=== PATIENT | male | born 1985 | race Caucasian/White ===

== ENCOUNTER 2017-05-07 16:54 | Inpatient (IN) | payer OTHER ==
[~2017-05-07] VITALS: Ht 180.3 cm; Wt 95.6 kg
--- NOTE | ~2017-05-07 | DS ---
Unit #: [id number] #: [id number] Patient: POLLY CHU [id number] [address] [address] [id number] I MR#: [id number] NAME: POLLY CHU ROOM: 333 Age: 31 Sex: M Admission Date: 05/07/2017 : 1985 Discharge Date: 05/14/2017 Attending Physician: Jeffrey Pinon M.D. Primary Care Physician: No Primary Care Physician DISCHARGE SUMMARY ADDENDUM A 31 year old who was admitted initially with rhabdomyolysis and acute renal failure, acute kidney injury, metabolic acidosis, acute hypoxic respiratory failure. He was supposed to be going home yesterday but was put on hold since Dr. Mcgowan is supposed to be clearing the patient due to his possibility of suicidal attempt. Patient is being discharged home today. He has no suicidal ideation. His medications remain the same: Hydralazine 50 mg three times daily. Patient will be following (1) and Dr. Rivera as an outpatient. Dictated by... Silas Juares/jeannie TD: 05/15/2017 10:38 JOB #: [id number] DISCHARGE SUMMARY Page 1 of 1 X Zenon Worthington MD DISCHARGE SUMMARY
--- NOTE | ~2017-05-07 | CO ---
Unit #: [id number] #: [id number] Patient: GERARDO CHU [id number] [address] [place], [place] [address] [id number] I MR#: [id number] NAME: GERARDO CHU ROOM: 333 Age: 31 Sex: M Admission Date: 05/07/2017 : 1985 Attending Physician: Jeffrey Pinon M.D. Primary Care Physician: No Primary Care Physician Consultation Date: 05/08/2017 CONSULTATION REPORT REASON FOR CONSULT Renal failure. HISTORY Thank you very much for asking us to see this patient in consultation. Mr. Gerardo Chu is a 31-year-old male who presented to the hospital yesterday. Apparently had some confusion and questionable fall with seizure activity, was admitted and noted to have a creatinine of 1 yesterday. It was up to a creatinine of 2.3 today, although unknown if he has had any significant urine output or not. During hospitalization here, he did have a history of some decreased heart rate down into the 30s. According to the records, he uses Spice intermittently, although he denies it when asking if he takes anything at all. He says no medicines, and then I said, "Nothing?" He said, "No," but then when I asked him about a positive opioid on his drug screen, he says he occasionally takes Lortab for a bad back. He currently is alert and oriented. He denies any chest pain, shortness of breath. He was having some nausea, but that has resolved. He denies any abdominal discomfort, any urinary symptoms. No significant swelling. PAST MEDICAL HISTORY History of some depression. Was told that he felt like he wanted to hurt himself, although again, he denies taking anything now. ALLERGIES Questionable codeine. SOCIAL HISTORY Positive smoker. No alcohol. Questionable Spice use versus other drug. MEDICATIONS His medicines at home, again, nothing, although he then states he is taking Lortab. Here he is on Zofran and IV fluids. FAMILY HISTORY Noncontributory. Negative for any kidney disease. PHYSICAL EXAMINATION VITAL SIGNS: His T max is 99.1, pulse 33 to 80, blood pressure 116 to 150/58 to 90. HEENT: Normocephalic, atraumatic. His pupils are equal, round and reactive to light. Extraocular muscles are intact. Hearing appears to be normal. Mouth is clear, no erythema, no exudate. NECK: Supple. No JVD. Unit #: [id number] #: [id number] Patient: GERARDO CHU CARDIAC: He is without a rub. No S3 or S4. LUNGS: His lungs are clear bilaterally. No wheezes, rhonchi or rales. ABDOMEN: Bowel sounds are positive. Nontender, soft. No masses felt. No hepatomegaly or organomegaly noted. EXTREMITIES: He has no lower extremity swelling. His pulses are intact in lower extremities. MUSCULOSKELETAL: No joint pain, joint swelling. SKIN: No rashes. NEUROLOGIC: Appears intact to motor and sensory grossly. : Deferred. DIAGNOSTIC STUDIES LABORATORY DATA: Initially sodium was 135, potassium 3.8, chloride 105, bicarb 18, anion gap 12, BUN 13, creatinine 1, glucose 258, calcium 8.8, albumin 4.8, total protein 8.4. His drug screen in urine was positive for opioids, negative for marijuana, cocaine and other drugs. His initial lactic acid was 6.3, down to 1.6. His BUN and creatinine today are 26 and 2.3 respectively with a bicarb of 19, anion gap of 7. Hemoglobin is 13.7, white count down to 14,300 from 26,400. Platelets are 184,000. His UA shows specific gravity of 1.018, 1+ protein, 1,000 glucose, RBC 0-2, WBC 0-2. INR was 1.2. IMAGING: MRI of the brain was negative. ASSESSMENT AND PLAN 1. Acute kidney injury. This is a gentleman who has increasing BUN and creatinine. We just got back his CPK that was 1,998. He does have mild rhabdomyolysis, but I do not think this is the cause of his kidney failure. I do not see how much output he has had or not. Will check a bladder scan, postvoid residual, check renal ultrasound to rule out obstruction. Will repeat a UA, culture and sensitivity, check a random urine protein/creatinine, check urine eosinophils, check a random urine sodium. Agree with IV fluids for now. His urine, again, had no RBCs or WBCs, but again positive protein. Will check labs in the morning. Depending on how he does, depending on what further workup and treatment. Will check blood cultures, as well, with elevated white count. Will recheck CPK and a CMP again in the morning. Will continue to follow. 2. Mild rhabdomyolysis. Possibly related to seizures, although with his level, I do not think that is the cause of his renal failure. Will keep him on his regular IV fluids. Will check CPK in the a.m. 3. Possible seizure. 4. Bradycardia. Cardiology has been consulted. 5. Questionable drug abuse. Again, was opioid positive. The rest is negative, and he denies taking anything at this time. 6. Acidosis. He had a non-elevated anion gap metabolic acidosis. Will check a serum osmolality, as well, recheck bicarb in the morning. Thank you very much. Dictated by.Yady Rivera M.D. LOIDA/quinn Unit #: [id number] #: [id number] Patient: GERARDO CHU TD: 05/09/2017 09:08 JOB #: [id number] CONSULTATION REPORT Page 1 of 1 X Amandeep Rivera MD X CONSULTATION REPORT
--- NOTE | ~2017-05-07 | CO ---
Unit #: [id number] #: [id number] Patient: GERARDO CHU [id number] [facility] [address] [facility]. [place], [place] [address] [id number] I MR#: [id number] NAME: GERARDO CHU ROOM: 333 Age: 31 Sex: M Admission Date: 05/07/2017 : 1985 Attending Physician: Jeffrey Pinon M.D. Primary Care Physician: Primary Care Physician No Consultation Date: 05/08/2017 CONSULTATION REPORT REASON FOR CONSULTATION Overdose. HISTORY OF PRESENT ILLNESS Gerardo Chu is a 31-year-old white male, seen in room 333 bed 1 on 05/08/2017 at [facility]. The patient's mom was at the bedside. The patient is not aware of the reason why he was admitted in the hospital. The patient apparently took overdose. Urine drug screen was positive for opioid. The patient denied any suicidal or homicidal ideation, but mom is concerned the patient was talking about suicide earlier this week. The patient's vital signs; temperature 99.2, pulse 65, respirations 16, blood pressure 126/67, and oxygen saturation 100%. The patient was admitted with possible seizure, rule out aspiration. The patient denied any use of drugs. PAST PSYCHIATRIC HISTORY Unremarkable for any history of any previous treatment for depression, anxiety, or substance abuse. MEDICAL HISTORY AND MEDICATION HISTORY Home medication, none. Remarkable for possible seizure, acute hypoxic respiratory failure. Urine drug screen positive for opioids, increased lactic acid level. ALLERGIES Allergies to Codeine. FAMILY HISTORY AND SOCIAL HISTORY The patient has a good support system from family. No history of abuse. History of substance abuse possible. Urine drug screen positive for opioids. REVIEW OF SYSTEMS Complete review of systems is unremarkable except as mentioned above. MENTAL STATUS EXAMINATION General appearance; the patient dressed casually, lying comfortably in bed. The patient has a sitter and the patient's mom was also there. Attention span and concentration, fair. Speech, regular rate. Oriented in time, place, and person. Mood and affect, sad, dysphoric, flat. Thought process, coherent. Thought content, the patient denied any thoughts of harming self or others or any hallucination, but at the time of admission confused and possible overdose. Recent and remote memory, poor. Language, intact. Fund of knowledge, fair. Insight and judgment, Unit #: [id number] #: [id number] Patient: GERARDO CHU fair to slightly impaired. DIAGNOSES Psychiatric: 1. Opioid use disorder, severe, F11.20. 2. Rule out major depressive disorder, recurrent, severe, F33.2. Secondary diagnosis: Deferred. Medical diagnosis: Please refer to H and P. Stressors: Psychosocial stressors. ASSESSMENT/PLAN 1. Supportive psychotherapy and psychoeducation provided to the patient. 2. Educated about benefits and side effects of medication and course and prognosis of illness. 3. Advised to continue with sitter and one-to-one monitoring for safety and consider transferring the patient to [facility] once the patient is medically stable. Please feel free to call if any questions telephone #[phone]. Dictated by... Lawson Mcgowan M.D. WILEY/laon TD: 05/09/2017 06:56 JOB #: [id number] CONSULTATION REPORT Page 1 of 1 X Lawson Mcgowan MD X CONSULTATION REPORT
--- NOTE | ~2017-05-07 | HP ---
Unit #: [id number] #: [id number] Patient: POLLY CHU [id number] [address] [place], [place] [address] [id number] MR#: [id number] NAME: POLLY CHU ROOM: 62160 Age: 31 Sex: M Admission Date: 05/07/2017 : 1985 Attending Physician: Ramandeep Mayer M.D. HISTORY AND PHYSICAL CHIEF COMPLAINT Possible seizure, rule out aspiration. HISTORY OF PRESENT ILLNESS This healthy 31-year-old male was brought to the emergency department for altered mental status. Family reports that another family member saw the patient "convulsing, then fell out." EMS was called, and the patient was laid back in a recliner foaming at his mouth. When EMS arrived, he was very altered but slowly improved on his own. He does have bruises over the head, complaining of a headache, and complaining of low back pain. He did not bite his tongue or lose continence of his urine. His initial ABG showed a metabolic acidosis with acute hypoxic respiratory failure. Despite a negative chest x-ray, he sounds quite rhonchus on exam. No previous history of seizures. Although patient denies a history of drug use, family members did say that patient does use spice on a frequent basis. His urine toxicology screen is positive for opiates. There was reportedly (1) with powder inside at the scene as well. Family also states the patient has been increasingly depressed saying he does not want to live anymore. His mother about two months ago. In the emergency department, he was bolused with IV fluids and given Zosyn and Zofran. PAST MEDICAL HISTORY Unremarkable. ALLERGIES Codeine. HOME MEDICATIONS None. FAMILY HISTORY Diabetes, colon cancer, seizures. SOCIAL HISTORY The patient lives with his stepfather and stepfather's girlfriend. Patient smokes between one-half to one pack per day of tobacco, does not drink alcohol, and denies illicit drug use. REVIEW OF SYSTEMS Notable for being confused today. Patient states that he remembers waking up in the back of the ambulance. He complains currently of chest pain, headache, and back pain. Tobacco use. All other systems were reviewed Unit #: [id number] #: [id number] Patient: POLLY CHU and are otherwise negative. PHYSICAL EXAMINATION GENERAL: A pleasant 31-year-old male who currently is in no acute distress. VITAL SIGNS: Temperature has not yet been obtained, pulse 80, respirations 20, blood pressure 142/90, and O2 saturation 96% on 2 liters of oxygen. HEENT: Eyes PERRLA. Extraocular muscles are intact, but patient does have horizontal nystagmus. Pharynx is benign with a pierced tongue. No laceration over the tongue. There is bruising over the forehead. NECK: Supple without adenopathy or thyromegaly. CHEST: Rhonchus bilaterally. CARDIAC: Normal S1 and S2 without murmur. ABDOMEN: Bowel sounds are present. No hepatosplenomegaly, tenderness, or masses. EXTREMITIES: Without edema. Pedal pulses are present. NEUROLOGIC: Patient is awake, alert, and oriented. His cranial nerves are intact. He has equal strength throughout. DIAGNOSTIC STUDIES ADMISSION LABORATORY: Hematocrit is 45.5 and white blood count is 26.4 with normal platelet count. Normal coags. SMA-12 with glucose of 258, CO2 of 18, and protein is 8.4. Lactic acid is 6.3. Acetaminophen, salicylate, and alcohol levels are negligible. ABG show a pH of 7.22, PCO2 of 33, PO2 of 61, and O2 saturation 82.8% on 2 liters of oxygen. Urine toxicology screen positive for opiates. Urinalysis with positive glucose, protein, and blood without significant white or red cells. IMAGING: Head CT shows chronic sinus disease. Chest x-ray shows no acute disease. CARDIOLOGY: EKG shows a normal sinus rhythm, rate 78, normal appearing. ASSESSMENT 1. Possible seizure. 2. Acute hypoxic respiratory failure, rule out aspiration pneumonia. 3. Increasing depression. Apparently, the patient told family members that he wants to . His mother two months ago. 4. Positive urine toxicology screen for opiates. 5. Elevated lactic acid level likely related to seizure. I doubt that patient is septic. 6. Probably reactive hyperglycemia and probably reactive leukocytosis. PLANS 1. One dose of Keppra and obtain EEG and MRI of the brain. 2. Aggressive IV fluids, recheck labs in a few hours, and will check a CPK. 3. Empiric Zosyn and albuterol. Will repeat chest x-ray in the morning. 4. Will put on sepsis protocol for now, although I do not believe the patient is septic. 5. A 72-hour hold with [facility] to see in the morning as well. 1. Dictated by Ramandeep Mayer M.D. AML/am Unit #: [id number] #: [id number] Patient: POLLY CHU TD: 05/07/2017 22:17 JOB #: [id number] HISTORY AND PHYSICAL Page 1 of 1 X Ramandeep Mayer MD X HISTORY AND PHYSICAL
--- NOTE | ~2017-05-07 | US77 ---
[facility] A Service of [facility] RADIOLOGY TEXT RESULTS PATIENT: POLLY CHU LOCATION: [facility] 333 : 85 UNIT #: [id number] AGE: [address]: Jeffrey Pinon MD SEX: M ORDER DR: [id number] [facility]. [place], [place] [address] [id number] I MR#: [id number] Acc #: [id number] NAME: POLLY CHU : 1985 SEX: M STUDY DATE/TIME: 05/08/2017 17:07 UNIT: C3A PCU ROOM: 333 STUDY DESCRIPTION: US Kidney Bilateral Complete Attending Physician: Jeffrey Pinon M.D. Ordering Physician: Beau Rivera M.D. Primary Care Physician: No Primary Care Physician MEDICAL IMAGING REPORT This report is preliminary unless electronic signature is present EXAM Renal ultrasound bilateral, 05/08/2017. INDICATION Acute renal failure for 1 day. BUN 23, creatinine 3.7, GFR 20.5. TECHNIQUE Sonographic imaging of the kidneys was performed bilaterally. COMPARISON We have no comparisons. FINDINGS The right kidney measures 14.3 cm long axis and the left 12.4 cm. Trace amount of free fluid adjacent to the right kidney. No shadowing stone or distinct evidence of hydronephrosis on either side. Bladder unremarkable. IMPRESSION 1. No hydronephrosis or shadowing stone on either side. 2. Nonspecific trace amount of free fluid adjacent to the right kidney. Dictated by... Ashok Marie M.D. THIS IS AN ELECTRONICALLY VERIFIED REPORT Ashok Marie M.D. at 05/09/2017 2:19 PM RAMIRO/billy TD: 05/09/2017 09:14 JOB #: [id number] [facility] A Service of [facility] RADIOLOGY TEXT RESULTS PATIENT: POLLY CHU LOCATION: [facility] 333 : 85 UNIT #: [id number] AGE: [address]: Jeffrey Pinon MD SEX: M ORDER DR: MEDICAL IMAGING REPORT Page 1 of 1 COPY
--- NOTE | ~2017-05-07 | CR72 ---
[facility] A Service of [facility] & [facility] RADIOLOGY TEXT RESULTS PATIENT: POLLY CHU LOCATION: [facility] 44579-48 : 85 UNIT #: [id number] AGE: [address]: Ramandeep Mayer MD SEX: M ORDER DR: [id number] [facility] [address]. [place], [place] [address] [id number] MR#: [id number] Acc #: [id number] NAME: POLLY CHU : 1985 SEX: M STUDY DATE/TIME: 05/07/2017 18:04 UNIT: [facility] ROOM: STUDY DESCRIPTION: CR Chest Single View Portable Attending Physician: Sunil Rosas D.O. Ordering Physician: Sunil Rosas D.O. Primary Care Physician: Primary Care Physician No MEDICAL IMAGING REPORT This report is preliminary unless electronic signature is present EXAM Portable chest HISTORY Confusion, cough, congestion, possible overdose and drug abuse. FINDINGS A single AP portable view of the chest shows both lungs to be clear. The heart is normal in size. The mediastinal contour is normal. No significant bone abnormalities are seen. IMPRESSION Normal portable chest. Dictated by... Lyndsay Dickey M.D. THIS IS AN ELECTRONICALLY VERIFIED REPORT Lyndsay Dickey M.D. at 05/07/2017 10:04 PM WILFRIDO/faviola TD: 05/07/2017 19:56 JOB #: [id number] MEDICAL IMAGING REPORT Page 1 of 1 COPY
--- NOTE | ~2017-05-07 | CT71 ---
[facility] A Service of [facility] & [facility] RADIOLOGY TEXT RESULTS PATIENT: POLLY CHU LOCATION: A 333-01 : [birth year] UNIT #: [id number] AGE: [address]: Jeffrey Pinon MD SEX: M ORDER DR: [id number] [facility] [address] [place], [place] [address] [id number] I MR#: [id number] Acc #: [id number] NAME: POLLY CHU : 1985 SEX: M STUDY DATE/TIME: 05/07/2017 20:01 UNIT: [facility] ROOM: 22908 STUDY DESCRIPTION: CT Head Wo Contrast Attending Physician: Ramandeep Mayer M.D. Ordering Physician: Sunil Rosas D.O. Primary Care Physician: Primary Care Physician No MEDICAL IMAGING REPORT This report is preliminary unless electronic signature is present EXAM Noncontrast head CT. HISTORY Syncopal episode today, possible overdose, injury to forehead. FINDINGS Axial noncontrast imaging of the brain. This CT exam was performed with one or more of the following radiation dose reduction techniques: Automatic exposure control, adjustment of mA and/or kV according to patient size, and iterative reconstruction. Brain parenchyma normal. No mass or hemorrhage. Frontal, ethmoid and sphenoid sinus mucosal disease. Calvarium and skull base unremarkable. IMPRESSION 1. No acute intracranial abnormality identified. 2. Probable chronic frontal, ethmoid and sphenoid sinus mucosal disease. Dictated by... Lyndsay Dickey M.D. THIS IS AN ELECTRONICALLY VERIFIED REPORT Lyndsay Dickey M.D. at 05/09/2017 5:39 PM WILFRIDO/faviola TD: 05/07/2017 22:05 JOB #: [id number] MEDICAL IMAGING REPORT Page 1 of 1 COPY
--- NOTE | ~2017-05-07 | CR181 ---
[facility] A Service of [facility] RADIOLOGY TEXT RESULTS PATIENT: POLLY CHU LOCATION: A 333-01 : 85 UNIT #: [id number] AGE: [address]: Jeffrey Pinon MD SEX: M ORDER DR: [id number] [facility] [address] [facility] [place], [place] [address] [id number] I MR#: [id number] Acc #: [id number] NAME: POLLY CHU : 1985 SEX: M STUDY DATE/TIME: 05/08/2017 7:38 [facility]: 18643 STUDY DESCRIPTION: CR Lumbar Spine 2 or 3 Views Attending Physician: Jeffrey Pinon M.D. Ordering Physician: Ramandeep Mayer M.D. Primary Care Physician: Primary Care Physician No MEDICAL IMAGING REPORT This report is preliminary unless electronic signature is present EXAM Lumbar spine 3 views 05/08/2017 HISTORY Left side low back pain status post fall after a seizure today. FINDINGS AP and lateral projections of the lumbar segment show good mineralization of both anterior and posterior elements. They are all anatomically normal without indication of fracture, dislocation, or malignant change of a sclerotic or lytic type. There is no congenital defect noted. The sacroiliac joints are normal. IMPRESSION Normal lumbar spine. Dictated by... Enoc Quijano M.D. THIS IS AN ELECTRONICALLY VERIFIED REPORT Enoc Quijano M.D. at 05/09/2017 7:13 AM ERNESTO/abelardo TD: 05/08/2017 09:19 JOB #: [id number] MEDICAL IMAGING REPORT Page 1 of 1 COPY
--- NOTE | ~2017-05-07 | DS ---
Unit #: [id number] #: [id number] Patient: POLLY CHU [id number] [address] [facility]. [place], [place] [address] [id number] I MR#: [id number] NAME: POLLY CHU ROOM: 333 Age: 31 Sex: M Admission Date: 05/07/2017 : 1985 Discharge Date: 05/14/2017 Attending Physician: Jeffrey Pinon M.D. Primary Care Physician: No Primary Care Physician DISCHARGE SUMMARY PRINCIPAL DISCHARGE DIAGNOSES 1. Rhabdomyolysis. 2. Acute kidney injury. 3. Bradycardia. 4. Questionable seizures. 5. History of drug abuse. 6. Metabolic acidosis. HOSPITAL COURSE This is a 31-year-old male who was brought into the emergency room by the family member, noticed to be having seizures or convulsions. In the ER, patient was found to have acute respiratory hypoxic respiratory failure and metabolic acidosis, acute renal failure with very high CPK level suggestive of rhabdomyolysis. He was seen by nephrology, treated with IV fluids. On admission, his creatinine was 5.1 with very high CPK levels which are significantly improved. CPK on admission was 37,000, now is down to 7955. Patient is medically stable. Discussed with Dr. Rivera who is the selling manager on the case. He is stable to be discharged home from his point. His bradycardia has resolved. His blood pressure is under control. DISCHARGE MEDICATIONS Hydralazine 50 mg three times a day. CONDITION AT DISCHARGE Stable. Note: According to the admission note, the patient was seen by Dr. Mcgowan. [facility] We will discuss with Dr. Mcgowan once again if patient is stable, whether he can be discharged home or [facility]. DIAGNOSTIC STUDIES LABORATORY: Labs on May 13: His creatinine is 2.2, potassium is 3.3, sodium is 136, CO2 is 34. At the time of the discharge summary, patient declines any suicidal ideation or suicidal thought. Dictated by... Silas Juares/jeannie Unit #: [id number] #: [id number] Patient: POLLY CHU TD: 05/15/2017 09:47 JOB #: [id number] DISCHARGE SUMMARY Page 1 of 1 X Zenon Worthington MD DISCHARGE SUMMARY
--- NOTE | ~2017-05-07 | CT4 ---
[facility] A Service of [facility] & [facility] RADIOLOGY TEXT RESULTS PATIENT: POLLY CHU LOCATION: C3A 333-01 : 85 UNIT #: [id number] AGE: [address]: Jeffrey Pinon MD SEX: M ORDER DR: [id number] [facility] [address] [place], [place] [address] [id number] I MR#: [id number] Acc #: [id number] NAME: POLLY CHU : 1985 SEX: M STUDY DATE/TIME: 05/09/2017 12:08 UNIT: C3A PCU ROOM: 333 STUDY DESCRIPTION: CT Abd and Pelv Wo Cont Attending Physician: Jeffrey Pinon M.D. Ordering Physician: Pola Link M.D. Primary Care Physician: No Primary Care Physician MEDICAL IMAGING REPORT This report is preliminary unless electronic signature is present EXAM CT abdomen and pelvis, 05/09/2017. HISTORY Seizure on 05/07/2017, questionable drug use. Increasing renal failure, GFR was 99 on 05/07/17 and 14.3 today. Evaluate kidneys. TECHNIQUE This CT exam was performed with one or more of the following radiation dose reduction techniques: automatic exposure control, adjustment of mA and/or kV according to patient size, and iterative reconstruction. FINDINGS CT abdomen and pelvis performed without administration of oral or intravascular contrast. No prior CTs of the abdomen or pelvis for comparison. There is some minimal patchy densities at the left lung base which are nonspecific and could represent minimal peribronchitis or pneumonitis. There is no dense airspace disease. The inferior heart and pericardium are unremarkable. There is a trace amount of ascites adjacent to the liver. There is some periportal edema present. The gallbladder is not pathologically dilated but it contains diffuse high-density material. The gallbladder wall is questionably prominent relative to its volume. Questionable small amount of pericholecystic fluid. This could be a reflection of the ascites. The high-density fluid within the gallbladder is of unclear etiology. It could represent dense gallbladder sludge. It does not have the appearance of gallstones. In the context of recent intravascular contrast administration, it could reflect hepatobiliary excretion of contrast. No clearly suspicious focal hepatic parenchymal abnormality is seen. The spleen is borderline enlarged at about 13.8 cm in maximum diameter. The pancreas, adrenal glands are unremarkable. The bilateral kidneys show no hydronephrosis or nephrolithiasis. A 2.7 cm cyst anteromedial lower pole left kidney. There is some haziness and STS. [facility] A Service of [facility] RADIOLOGY TEXT RESULTS PATIENT: POLLY CHU LOCATION: C3A 333-01 : 85 UNIT #: [id number] AGE: [address]: Jeffrey Pinon MD SEX: M ORDER DR: stranding in the right inferior perinephric fat. There is a subtle area of hypodensity in the lower pole of the right kidney, better visualized on the sagittal and coronal reconstructions. Vaguely wedge-shaped in configuration and measuring approximately 2.1 cm x 3.7 cm. The appearance in conjunction with the adjacent inflammatory change raises possibility of localized pyelonephritis. Correlate with urinalysis. Given its vaguely wedge-like shape, consider possible infarct. This is felt less likely in the absence of risk factors. It is possible that some of the apparent inflammatory change in this region reflects ascites extending along the pericolic gutter, but the inflammatory change does appear to some extent localized within the perinephric fat at the right lower renal pole. CT Pelvis: No inguinal adenopathy. Small amount of free fluid in the pelvis. Not a drainable fluid collection. Urinary bladder unremarkable. There is no pelvic or retroperitoneal adenopathy. The distal esophagus, stomach, small bowel unremarkable. Patient retains normal appendix. Colon shows evidence of uncomplicated sigmoid diverticulosis. Colon otherwise unremarkable. Unopacified vascular structures show no acute abnormality. Bony structures show degenerative change in spine. No acute-appearing bony abnormality. Review of the lung bases shows a tiny right pleural effusion. Not a drainable fluid collection. IMPRESSION 1. Abnormal examination. Please see complete dictation above for full details. In the lower pole of the right kidney there is a vaguely wedge-shaped area of subtle hypodensity measuring up to 3.7 cm in diameter. Adjacent to this, there is some mild inflammatory change in the lower pole perinephric fat. Constellation of findings could reflect focal area of pyelonephritis. Correlate with laboratory data and clinical presentation. Unifocal parenchymal infarct felt unlikely. No renal hydronephrosis or nephrolithiasis. No acute abnormality in the left kidney. Left lower pole renal cyst. 2. There is a small amount of ascites adjacent to the liver and in the deep pelvis. These are not drainable fluid collections. 3. Periportal edema. Cause unclear. Correlate with any clinical indications of hepatitis. The liver shows no focal parenchymal abnormality. 4. Abnormal appearance of gallbladder. It is not abnormally dilated but the wall appears slightly prominent relative to volume and the gallbladder is filled with homogeneous hyperdense material. This could represent dense sludge, milk of calcium, or hepatobiliary excretion of contrast material if the patient has recently received intravascular contrast. Please correlate clinically. If further gallbladder imaging would assist in management, ultrasound or hepatic biliary scan could be considered. There may be a trace amount of pericholecystic fluid. It is possible that this is simply ascitic fluid and not an indicator of gallbladder inflammation. 4. Borderline splenomegaly. Spleen measures up to 13.8 cm in maximum diameter. [facility]. [facility] A Service of [facility] RADIOLOGY TEXT RESULTS PATIENT: POLLY CHU LOCATION: [facility] 333-01 : 85 UNIT #: [id number] AGE: [address]: Jeffrey Pinon MD SEX: M ORDER DR: 5. Uncomplicated sigmoid diverticulosis. 6. Trace right pleural effusion. Not a drainable fluid collection. 7. Minimal patchy densities posteromedial left lung base. Not typical appearance for atelectasis. Area of mild pneumonitis/bronchiolitis favored. No dense airspace disease. See remainder findings in body of report above. Dictated by... Phu Monk M.D. THIS IS AN ELECTRONICALLY VERIFIED REPORT Phu Monk M.D. at 05/12/2017 7:36 AM LENNIE/elaine TD: 05/09/2017 21:10 JOB #: [id number] MEDICAL IMAGING REPORT Page 1 of 1 COPY
--- NOTE | ~2017-05-07 | CO ---
Unit #: [id number] #: [id number] Patient: POLLY CHU [id number] [address] [address] [id number] I MR#: [id number] NAME: POLLY CHU ROOM: 333 Age: 31 Sex: M Admission Date: 05/07/2017 : 1985 Attending Physician: Jeffrey Pinon M.D. Primary Care Physician: No Primary Care Physician Consultation Date: 05/10/2017 CONSULTATION REPORT REASON FOR CONSULTATION Acute renal failure with abnormality on imaging of right kidney. CHIEF COMPLAINT Drug overdose and acute renal failure. HISTORY OF PRESENT ILLNESS The patient is a 31-year-old male who presented on 05/07/2017 after an apparent drug overdose with Spice. He had some confusion and a fall with possible seizure activity, and he was brought to the emergency room. He denies flank pain, fevers or chills. His creatinine has risen from a baseline of 1 on May 07 to 2.3 on May 08, 5.0 on May 09 and 5.1 on May 10. He underwent a renal ultrasound, which showed no hydronephrosis but a small amount of right perinephric fluid, and then a noncontrasted CT scan of the abdomen and pelvis, which shows a hypodensity in the right lower pole of his kidney. He, again, denies fevers and flank pain. It should be noted that he has an elevated CK of 38,440, which is rising, most likely consistent with rhabdomyolysis. The patient denies gross hematuria or dysuria. PAST MEDICAL HISTORY Depression. SOCIAL HISTORY Positive for tobacco. Negative for alcohol. Positive for Spice use. ALLERGIES Possibly codeine. HOME MEDICATIONS None. FAMILY HISTORY Noncontributory. REVIEW OF SYSTEMS Positive for mental status changes and seizure activity. Negative for fevers, chills, flank pain, gross hematuria. PHYSICAL EXAMINATION GENERAL: Physical examination reveals a well-developed white male in no acute distress. VITALS: Temperature 97.9, blood pressure 147/81, pulse 109. Unit #: [id number] #: [id number] Patient: POLLY CHU HEENT: Normocephalic, atraumatic. Extraocular movements are intact. NECK: Neck is supple. No lymphadenopathy. LUNGS: Respirations are unlabored with symmetric chest rise. ABDOMEN: Soft, nontender, nondistended. There is no CVA tenderness. EXTREMITIES: There is no clubbing, cyanosis or edema. He is moving all extremities well. NEUROLOGIC: He is alert and oriented x4. DIAGNOSTIC STUDIES LABS: White blood cell count 15,000. It is falling. Creatinine is 5.1, potassium 3.6. CK is 38,440. Urinalysis - Nitrite negative, leukocyte esterase trace positive, 10-15 white blood cells. Urine culture is no growth to date. IMAGING: CT scan and renal ultrasound were personally reviewed. ASSESSMENT AND PLAN Rhabdomyolysis, acute renal failure and right lower density lesion on CT scan. While this could radiographically represent pyelonephritis, he has a negative urine culture, and this is certainly not acting like pyelonephritis or an abscess given his lack of fevers and lack of flank pain. We will monitor him, and if symptoms of this develop, then we may consider antibiotics and reimaging. This lesion does need to be reimaged. If his creatinine normalizes and his kidney function recovers, then we will get a CT of the abdomen and pelvis without and with IV contrast. If it does not normalize, then we would repeat an noncontrast CT scan in 2-3 months. Appreciate the opportunity to participate in his care. Dictated by... Gomez Green M.D. JEANNE/quinn TD: 05/10/2017 11:54 JOB #: [id number] CONSULTATION REPORT Page 1 of 1 X Gomez Green MD CONSULTATION REPORT
--- NOTE | ~2017-05-07 | CR63 ---
[facility] A Service of [facility] & [facility] RADIOLOGY TEXT RESULTS PATIENT: POLLY CHU LOCATION: A 333-01 : 85 UNIT #: [id number] AGE: [address]: Jeffrey Pinon MD SEX: M ORDER DR: [id number] [facility] [address] [place], [place] [address] [id number] I MR#: [id number] Acc #: [id number] NAME: POLLY CHU : 1985 SEX: M STUDY DATE/TIME: 05/08/2017 7:27 [facility]897 STUDY DESCRIPTION: CR Chest 2 View Attending Physician: Jeffrey Pinon M.D. Ordering Physician: Ramandeep Mayer M.D. Primary Care Physician: Primary Care Physician No MEDICAL IMAGING REPORT This report is preliminary unless electronic signature is present EXAM Chest PA and lateral 05/08/2017 HISTORY Left-side chest pain and low back pain beginning today after a seizure. Smoking history. FINDINGS PA and lateral examination of the chest upright shows a good expansion of the parenchyma with a normal distribution of the pulmonary vascularity. There is no indication of congestion, effusion, infiltrate, tumor, or nodular density. The pleural reflections and diaphragmatic contours are normal. The cardiac silhouette and mediastinal anatomy is within normal limits. IMPRESSION Normal chest. Dictated by... Enoc Quijano M.D. THIS IS AN ELECTRONICALLY VERIFIED REPORT Enoc Quijano M.D. at 05/09/2017 7:13 AM ERNESTO/abelardo TD: 05/08/2017 09:04 JOB #: [id number] MEDICAL IMAGING REPORT Page 1 of 1 COPY
--- NOTE | ~2017-05-07 | TOC ---
Unit #: [id number] #: [id number] Patient: POLLY CHU [id number] [address] [facility] [place], [place] [address] [id number] I MR#: [id number] NAME: POLLY CHU ROOM: 333 Age: 31 Sex: M Admission Date: 05/07/2017 : 1985 Attending Physician: Jeffrey Pinon M.D. Primary Care Physician: No Primary Care Physician TRANSFER OF CARE SUMMARY DISCHARGE DIAGNOSES 1. Seizure. 2. Acute hypoxic respiratory failure. 3. Depression with suicidal ideation/attempt. 4. Drug abuse. 5. Metabolic acidosis. 6. Rhabdomyolysis. 7. Acute kidney injury. HOSPITAL COURSE Patient is a 31-year-old male who was brought to [facility] emergency department after a family member noticed him to be "convulsing." EMS was called and found a similar picture and brought the patient to the emergency department. Initial ABG in the emergency department showed a metabolic acidosis and acute hypoxic respiratory failure. Apparently there is a report that apparently the patient had been increasingly depressed and had possibly attempted to take his own life secondary to the passing of his mother. Report was also given that the patient smokes spice intermittently. The patient recovered well and did not have any further seizure activity. Upon discussion of possible suicide attempt or drug ingestion, the patient denies both. He has been seen by Dr. Mcgowan with psychiatry who has recommended consideration for transferring the patient to [facility][1] once he is medically stable. The patient's creatinine was 1.0 upon presentation to the emergency department on 05/07. However it had risen to 2.3 by 6:00 a.m. and recheck approximately 20 hours after admission showed a rise to 3.7. Shortly thereafter the patient's CK was noted to be on the rise and after having been 1998 upon initial check eventually kristina to 38,440. At this time it is trending down as is the patient's creatinine which is currently 3.0. The patient feels well and does continue to deny suicidal ideation. The current plan is to continue IV fluids as creatinine continues to improve and consider a transfer to [facility][1] based on psychiatric recommendations upon resolution of acute kidney injury. Dictated by... Jeffrey Pinon M.D. CAM/cf Unit #: [id number] #: [id number] Patient: POLLY CHU TD: 05/12/2017 16:17 JOB #: [id number] TRANSFER OF CARE SUMMARY Page 1 of 1 X Jeffrey Pinon MD TRANSFER OF CARE SUMMARY
--- NOTE | ~2017-05-07 | EKG ---
PATIENT: POLLY CHU UNIT #: [id number] Ventricular Rate: 44 BPM Atrial Rate: 44 BPM P-R Interval: 124 ms QRS Duration: 94 ms Q-T Interval: 482 ms QTC Calculation(Bezet): 412 ms P Loring: 61 degrees Calculated R Loring: 4 degrees Diagnosis Line: Marked sinus bradycardia Diagnosis Line: Borderline ECG Diagnosis Line: When compared with ECG of 07-MAY-2017 17:35, Diagnosis Line: (unconfirmed) Diagnosis Line: Vent. rate has decreased BY 34 BPM Diagnosis Line: QT has shortened Diagnosis Line: Confirmed by JUAN JOSE CARPENTER MD ([id number]) on 05/09/2017 Diagnosis Line: 11:44:32 PM INTERPRETING MD: PAULINE DARDEN
--- NOTE | ~2017-05-07 | MR17 ---
[facility] A Service [facility] RADIOLOGY TEXT RESULTS PATIENT: POLLY CHU LOCATION: C3A PC 333-01 : 85 UNIT #: [id number] AGE: [address]: Jeffrey Pinon MD SEX: M ORDER DR: [id number] [facility] [address] [place], [place] [address] [id number] I MR#: [id number] Acc #: [id number] NAME: POLLY CHU : 1985 SEX: M STUDY DATE/TIME: 05/08/2017 8:44 UNIT: CEDOF ROOM: 00799 STUDY DESCRIPTION: MR Brain WWo Contrast Attending Physician: Jeffrey Pinon M.D. Ordering Physician: Sunil Rosas D.O. Primary Care Physician: Primary Care Physician No MRI CENTER REPORT This report is preliminary unless electronic signature is present. EXAM MRI brain INDICATION Focal neurological deficit. Seizure. Acute hypoxic respiratory failure. Hyperglycemia. Possible drug overdose. TECHNIQUE Multiplanar MRI of the brain with and without contrast (17 mL MultiHance IV contrast). COMPARISON CT head dated 05/07/2017. FINDINGS Several image sequences are degraded due to motion artifact. The midline structures and craniocervical junction are within normal limits. There is no acute intracranial ischemia. No intracranial hemorrhage. Neville-white matter differentiation is normal. The ventricles and basilar cisterns are normal in size and configuration. There is no abnormal enhancing mass or lesion following administration of contrast. There is no extraaxial collection or abnormal extraaxial enhancement. There is a small left mastoid effusion. Minimal mucosal thickening is noted in the left maxillary sinus and left sphenoid sinus. Orbits are unremarkable. The dedicated high resolution T2 images through the medial temporal lobes are significantly motion degraded, however there is no asymmetric atrophy in this region. IMPRESSION [facility] A Service [facility] RADIOLOGY TEXT RESULTS PATIENT: POLLY CHU LOCATION: C3A PC 333-01 : 85 UNIT #: [id number] AGE: [address]: Jeffrey Pinon MD SEX: M ORDER DR: Negative MRI of the brain. No acute findings. Dictated by... Bennett Paredes M.D. THIS IS AN ELECTRONICALLY VERIFIED REPORT Bennett Paredes M.D. at 05/08/2017 1:00 PM JED/abelardo TD: 05/08/2017 10:56 JOB #: [id number] MRI CENTER REPORT Page 1 of 1 COPY
--- NOTE | ~2017-05-07 | CO ---
Unit #: [id number] #: [id number] Patient: POLLY CHU [id number] [facility] [address] [place], [place] [address] [id number] I MR#: [id number] NAME: POLLY CHU ROOM: 333 Age: 31 Sex: M Admission Date: 05/07/2017 : 1985 Attending Physician: Jeffrey Pinon M.D. Primary Care Physician: No Primary Care Physician CONSULTATION REPORT REASON FOR CONSULTATION Bradycardia. HISTORY OF PRESENT ILLNESS This is a 31-year-old white male who is admitted from [facility] emergency room with altered mental status. It was questionable whether he had a seizure. He was transferred to [facility] for further evaluation. The patient is a poor historian but says he does not remember any details. His last known normal was on Monday morning. He says he awakened in the ambulance where he was fully awake and oriented. Work up thus far has been negative. He is noted to have leukocytosis with white count 26.4 and now down to 14.3 after being on antibiotics. Creatinine is elevated today at 2.3. He was noted to have heart failure in the 30s for which cardiology was consulted. The patient denies any history of hypertension, hyperlipidemia, diabetes. He has had no prior cardiac history or workup. He denies any symptoms of angina, palpitations or dizziness. He did stated that he had a near syncopal episode last month while he was working in the hot heat. Otherwise, no prior syncopal episodes. According to the nurse, the patient apparently passed out at some point. It is questionable if he had an overdose. His urine drug screen was positive for opiates. The patient states he had no history of drug use in the past. He took a Lortab on Monday because of back pain that he has pretty frequently. He is usually very active on his job especially and has no complaints of chest pain or shortness of breath. He has been depressed because of the recent of his mother two months ago. He is on a 72 hour hold for apparently suicidal ideation. PAST SURGICAL HISTORY 1. Active smoker. 2. Chronic back pain. PAST SURGICAL HISTORY No previous surgeries. 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 On his job he is very active. He smokes approximately one pack of cigarettes a day. He denies any illicit drug or alcohol use other than taking a Lortab. FAMILY HISTORY Father is currently living and well and had open heart surgery in his 50s. ALLERGIES Unit #: [id number] #: [id number] Patient: POLLY CHU Codeine. HOME MEDICATIONS No current medications. REVIEW OF SYSTEMS CONSTITUTIONAL: Negative for fever or chills. Has no recent weight gain or weight loss. HEENT: No headache, hearing or visual changes or difficulty with swallowing. Denies dizziness. CARDIOVASCULAR: Has no symptoms of angina. Denies palpitations. No paroxysmal nocturnal dyspnea or orthopnea. Unsure of syncope or near syncope. RESPIRATORY: Negative for dyspnea, cough or hemoptysis. GASTROINTESTINAL: No abdominal pain, nausea or vomiting. No constipation or melena. EXTREMITIES: Negative for lower extremity edema. PHYSICAL EXAMINATION VITAL SIGNS: Blood pressure 127/79, heart rate 36, temperature 98.1, BMI 21. GENERAL: This is a well developed 31-year-old white male who is in no acute respiratory distress. NEUROLOGICAL: He is awake, alert and oriented. There are no focal weaknesses. NECK: Trachea midline. No thyromegaly or lymphadenopathy. No jugular venous distention. HEART: S1, S2 heart sounds are normal. No murmurs, rubs or clicks. Regular rate and rhythm. LUNGS: Clear without rales, rhonchi or wheezes. ABDOMEN: Soft, nontender, with bowel sounds present. EXTREMITIES: Without leg edema. SKIN: Warm and dry. DIAGNOSTIC STUDIES LABORATORY: Hemoglobin 13.7, hematocrit 39.6, platelet count 184, white count 14.3, sodium 137, potassium 3.8, BUN 20, creatinine 2.3, glucose 112. IMAGING: Chest x-ray shows no active disease. CT of the head is negative. MRI of the brain shows no acute intracranial abnormality. Lumbar spinal x-ray show normal lumbar spine. CARDIOVASCULAR: Electrocardiogram - sinus bradycardia with rate of 44 beats/minute, otherwise normal. IMPRESSION 1. Altered mental status. 2. Questionable seizures. 3. Acute kidney injury. 4. Leukocytosis, questionable etiology. 5. Nicotine abuse. 6. Asymptomatic sinus bradycardia. PLAN Unit #: [id number] #: [id number] Patient: POLLY CHU 1. Cardiology was consulted for bradycardia. There is no high grade AV block or arrhythmias noted. Blood pressure is currently stable. 2. TSH and lipid profile will be checked. 3. Will obtain 2D echocardiogram to evaluate left ventricular systolic function. 4. If echocardiogram and TSH are normal, do not anticipate any further cardiac workup. May need outpatient event monitor. 5. Renal has been consulted for acute kidney injury. 6. The patient has questionable suicidal ideation and OLOP is to evaluate. 7. Will follow the patient with you. 8. Thank you for allowing us to assist with this patient's care. Dictated by... Roberto Stoddard A.P.R.N. for Silas Diaz/heath TD: 05/09/2017 09:32 JOB #: [id number] CONSULTATION REPORT Page 1 of 1 X Roberto Stoddard APRN X CONSULTATION REPORT
--- NOTE | ~2017-05-07 | EKG ---
PATIENT: POLLY CHU UNIT #: [id number] Ventricular Rate: 78 BPM Atrial Rate: 78 BPM P-R Interval: 132 ms QRS Duration: 90 ms Q-T Interval: 410 ms QTC Calculation(Bezet): 467 ms P Pinole: 84 degrees Calculated R Pinole: 5 degrees Calculated T Pinole: -5 degrees Diagnosis Line: Normal sinus rhythm with sinus arrhythmia Diagnosis Line: Normal ECG Diagnosis Line: No previous ECGs available Diagnosis Line: Confirmed by JUAN JOSE CARPENTER MD ([id number]) on 05/09/2017 Diagnosis Line: 10:55:23 PM INTERPRETING MD: PAULINE DARDEN
--- NOTE | ~2017-05-07 | EE ---
Unit #: [id number] #: [id number] Patient: POLLY CHU [id number] [address] [address] [id number] MR#: [id number] NAME: POLLY CHU : 1985 SEX: M STUDY DATE/TIME: 05/08/2017 UNIT: C3A PCU ROOM: [facility] STUDY DESCRIPTION: Attending Physician: Jeffrey Pinon M.D. Referring Physician: Ramandeep Myaer M.D. Primary Care Physician: No Primary Care Physician NEURODIAGNOSTICS REPORT EXAM EEG. REASON FOR THE STUDY Possible overdose. EEG DESCRIPTION This is an inpatient, digitally recorded, multimontage adult EEG with leads placed according to the International 10/20 System. Hyperventilation was not done but photic stimulation was attempted. With the patient fully aroused, there is 8 to 9 Hz posterior dominant alpha rhythm and the patient quickly fell asleep and stage 2 sleep was seen. Nothing suggesting seizure. Nothing suggesting interictal discharges. No clinical events were seen. Hyperventilation was not done. Photic stimulation was attempted in an intermittent stepwise pattern up to the flash frequency of 30 Hz but I did not see any driving, asymmetry, or paroxysmal activity. IMPRESSION This is an essentially normal adult awake and asleep EEG. An EEG like this does not rule out epilepsy. Clinical correlation is recommended. Dictated by... Silas Pineda/jeannie TD: 05/09/2017 15:28 JOB #: [id number] Unit #: [id number] #: [id number] Patient: POLLY CHU NEURODIAGNOSTICS REPORT Page 1 of 1 X Kingston Abernathy MD NEURODIAGNOSTICS REPORT
[2017-05-07 17:41] LABS: ARTERIAL BLD GAS O2 SATURATION 82.8 % (90.0-100.0); ARTERIAL BLOOD GAS CARBOXY HB 5.9 %sat (0.0-9.0); ARTERIAL BLOOD GAS HCO3 13.5 mmol/L; ARTERIAL BLOOD GAS MET HB 1.1 %sat (0.0-2.0); ARTERIAL BLOOD GAS PCO2 32.9 mmHg (35.0-45.0)
[2017-05-07 17:42] LABS: ARTERIAL BLOOD GAS ALLEN TEST NORMAL; ARTERIAL BLOOD GAS ART SITE RIGHT RADIAL; ARTERIAL BLOOD GAS DELIVERY NASAL CANNULA; ARTERIAL DRAW? YES
[2017-05-07 18:42] LABS: INR 1.2; PARTIAL THROMBOPLASTIN TIME 29.1 SECONDS (23.5-31.3); PROTHROMBIN TIME (PATIENT) 12.5 SECONDS (10.0-11.7)
[2017-05-07 18:51] LABS: ALBUMIN SERUM 4.9 g/dL (3.5-5.0); ALKALINE PHOSPHATASE 78 U/L (32-92); ALT (SGPT) 12 U/L (10-40); AST (SGOT) 24 U/L (10-42); BILIRUBIN, DIRECT 0.2 mg/dL (0.0-0.2); BILIRUBIN,INDIRECT 0.9 mg/dL (0.0-0.9); BILIRUBIN,TOTAL 1.1 mg/dL (0.2-2.0); BLOOD UREA NITROGEN 13 mg/dL (9-23); CALCIUM SERUM 9.5 mg/dL (8.4-10.2); CARBON DIOXIDE 18 mmol/L (22-31); CHLORIDE 105 mmol/L (100-111); GLOM FILT RATE Estimated 99.9 mL/min (>60); GLUCOSE FASTING 258 mg/dL (70-110); POTASSIUM 3.8 mmol/L (3.5-5.1); PROTEIN TOTAL SERUM 8.4 g/dL (6.0-8.3); SALICYLATE <4.0 mg/dL; SODIUM 135 mmol/L (135-145)
[2017-05-07 18:56] LABS: ACETAMINOPHEN <10 ug/mL; ALCOHOL BLOOD <5 mg/dL (0)
[2017-05-07 20:03] LABS: URINE SOURCE CLEAN CATCH
[2017-05-07 20:11] LABS: URINE APPEARANCE CLEAR; URINE BILIRUBIN NEG (NEG); URINE BLOOD 2+ (NEG); URINE COLOR YELLOW; URINE GLUCOSE >1000 MG/DL (NEG); URINE KETONE TRACE (NEG); URINE LEUKOCYTE ESTERASE NEG (NEG); URINE NITRATE NEG (NEG); URINE PROTEIN 1+ (NEG); URINE SPECIFIC GRAVITY 1.018 (1.003-1.035); URINE UROBILINOGEN 0.2 MG/DL (NEG)
[2017-05-07 20:13] LABS: URBCS1 AUWI 0-2 /[HPF] (0-2); URINE BACTERIA AUWI NEG (NEGATIVE); URINE SQUAMOUS EPITHELIAL CELL NONE SEEN /[HPF]; UWBCS1 AUWI 0-2 (0-5)
[2017-05-07 20:14] LABS: CULTURE INDICATED? NO
[2017-05-07 20:23] LABS: AMPHETAMINE NEG (NEG); BARBITURATES NEG (NEG); BENZODIAZEPINES NEG (NEG); COCAINE NEG (NEG); MARIJUANA NEG (NEG); OPIATES POS (NEG); TRICYCLIC ANTIDEPRESSANTS NEG (NEG); U METHADONE NEG (NEG)
[2017-05-07 20:42] LABS: BASOPHIL% 0.1 % (0-2.5); DIFF IND YES; EOSINOPHIL% 0.1 % (0.0-7.0); HEMATOCRIT 45.5 % (38.0-50.0); HEMOGLOBIN 15.6 gm/dL (13.0-16.0); LYMPHOCYTE# 1.2 X10e3 (1.0-3.5); LYMPHOCYTE% 4.6 % (17.0-45.0); MEAN CELL VOLUME 92.4 FL (83-96); MEAN CORPUSCULAR HEMOGLOBIN 31.5 PG (28-34); MEAN CORPUSCULAR HGB CONC 34.2 g/dL (30-36); MEAN PLATELET VOLUME 9.3 FL (6.5-11.5); MONOCYTE# 2.2 X10e3 (0-1.0); MONOCYTE% 8.3 % (3.0-12.0); NEUTROPHIL# 22.9 X10e3 (1.5-7.1); NEUTROPHIL% 86.9 % (40-75); PLATELET COUNT 232 X10e3 (140-420); RED BLOOD COUNT 4.93 X10e (3.90-5.60); RED CELL DISTRIBUTION WIDTH 13.8 % (11.0-15.5); WHITE BLOOD COUNT 26.4 X10e3 (4.0-10.5)
[2017-05-07 21:14] LABS: PLATELET ESTIMATE NORMAL (NORMAL); RBC NORMAL YES
[2017-05-08 06:50] LABS: BASOPHIL% 0.1 % (0-2.5); EOSINOPHIL% 0.1 % (0.0-7.0); HEMATOCRIT 39.6 % (38.0-50.0); HEMOGLOBIN 13.7 gm/dL (13.0-16.0); LYMPHOCYTE# 2.1 X10e3 (1.0-3.5); MEAN CELL VOLUME 91.3 FL (83-96); MEAN CORPUSCULAR HEMOGLOBIN 31.4 PG (28-34); MEAN CORPUSCULAR HGB CONC 34.4 g/dL (30-36); MEAN PLATELET VOLUME 9.2 FL (6.5-11.5); MONOCYTE# 1.5 X10e3 (0-1.0); MONOCYTE% 10.7 % (3.0-12.0); NEUTROPHIL# 10.6 X10e3 (1.5-7.1); NEUTROPHIL% 74.1 % (40-75); PLATELET COUNT 184 X10e3 (140-420); RED BLOOD COUNT 4.34 X10e (3.90-5.60); RED CELL DISTRIBUTION WIDTH 13.6 % (11.0-15.5); WHITE BLOOD COUNT 14.3 X10e3 (4.0-10.5)
[2017-05-08 06:53] LABS: DIFF IND NO
[2017-05-08 07:15] LABS: BUN/CREATININE RATIO 8.69; CALCIUM SERUM 8.8 mg/dL (8.4-10.2); CREATININE SERUM 2.3 mg/dL (0.6-1.4); GLOM FILT RATE Estimated 36.5 mL/min (>60); POTASSIUM 3.8 mmol/L (3.5-5.1)
[2017-05-08 07:51] LABS: PROCALCITONIN 2.93 NG/ML
[2017-05-08 14:22] LABS: ALBUMIN SERUM 4.1 g/dL (3.5-5.0); BILIRUBIN,TOTAL 1.3 mg/dL (0.2-2.0); BUN/CREATININE RATIO 6.21; CALCIUM SERUM 9.1 mg/dL (8.4-10.2); CREATININE SERUM 3.7 mg/dL (0.6-1.4); GLOM FILT RATE Estimated 20.5 mL/min (>60); POTASSIUM 4.5 mmol/L (3.5-5.1); PROTEIN TOTAL SERUM 6.8 g/dL (6.0-8.3)
[2017-05-08 15:28] LABS: CHOLESTEROL 112 mg/dL (0-200); HDL CHOLESTEROL 32 mg/dL (29-75); LDL CHOLESTEROL 64 mg/dL (-130); LDL/HDL RATIO 2 RATIO (0-4); TRIGLYCERIDES 79 mg/dL (10-160)
[2017-05-09 02:23] LABS: URINE APPEARANCE CLEAR; URINE BILIRUBIN NEG (NEG); URINE BLOOD 3+ (NEG); URINE COLOR YELLOW; URINE GLUCOSE NEG (NEG); URINE KETONE NEG (NEG); URINE LEUKOCYTE ESTERASE TRACE (NEG); URINE NITRATE NEG (NEG); URINE PH 5.5 (5-8); URINE PROTEIN 3+ (NEG); URINE SPECIFIC GRAVITY 1.013 (1.003-1.035); URINE UROBILINOGEN 0.2 MG/DL (NEG)
[2017-05-09 02:26] LABS: URINE BACTERIA AUWI NEG (NEGATIVE); URINE SQUAMOUS EPITHELIAL CELL FEW /[HPF]
[2017-05-09 03:26] LABS: CREATININE,RANDOM URINE 125 mg/dL; SODIUM URINE RANDOM 39 mmol/L
[2017-05-09 03:27] LABS: TOTAL PROTEIN,RANDOM URINE 261 mg/dl (<10)
[2017-05-09 04:54] LABS: HEMATOCRIT 37.7 % (38.0-50.0); HEMOGLOBIN 12.7 gm/dL (13.0-16.0); MEAN CELL VOLUME 92.9 FL (83-96); MEAN CORPUSCULAR HEMOGLOBIN 31.3 PG (28-34); MEAN CORPUSCULAR HGB CONC 33.7 g/dL (30-36); MEAN PLATELET VOLUME 9.9 FL (6.5-11.5); RED BLOOD COUNT 4.06 X10e (3.90-5.60); WHITE BLOOD COUNT 16.1 X10e3 (4.0-10.5)
[2017-05-09 06:11] LABS: ALBUMIN SERUM 3.5 g/dL (3.5-5.0); BILIRUBIN,TOTAL 1.4 mg/dL (0.2-2.0); BUN/CREATININE RATIO 4.8; CALCIUM SERUM 8.6 mg/dL (8.4-10.2); GLOM FILT RATE Estimated 14.3 mL/min (>60); MAGNESIUM 2.3 mg/dL (1.6-3.0); POTASSIUM 4.1 mmol/L (3.5-5.1); PROTEIN TOTAL SERUM 6.2 g/dL (6.0-8.3)
[2017-05-09 13:33] LABS: INR 1.1; PROTHROMBIN TIME (PATIENT) 11.7 SECONDS (10.0-11.7)
[2017-05-10 06:39] LABS: HEMATOCRIT 37.4 % (38.0-50.0); HEMOGLOBIN 12.9 gm/dL (13.0-16.0); MEAN CELL VOLUME 91.4 FL (83-96); MEAN CORPUSCULAR HEMOGLOBIN 31.6 PG (28-34); MEAN CORPUSCULAR HGB CONC 34.6 g/dL (30-36); RED BLOOD COUNT 4.1 X10e (3.90-5.60); WHITE BLOOD COUNT 15.3 X10e3 (4.0-10.5)
[2017-05-10 06:49] LABS: INR 1.1
[2017-05-10 08:20] LABS: ALBUMIN SERUM 3.4 g/dL (3.5-5.0); BILIRUBIN,TOTAL 1.8 mg/dL (0.2-2.0); BUN/CREATININE RATIO 5.88; CALCIUM SERUM 8.8 mg/dL (8.4-10.2); CREATININE SERUM 5.1 mg/dL (0.6-1.4); GLOM FILT RATE Estimated 13.9 mL/min (>60); POTASSIUM 3.6 mmol/L (3.5-5.1); PROTEIN TOTAL SERUM 5.8 g/dL (6.0-8.3)
[2017-05-11 05:12] LABS: HEMATOCRIT 36.6 % (38.0-50.0); HEMOGLOBIN 12.8 gm/dL (13.0-16.0); MEAN CELL VOLUME 90.3 FL (83-96); MEAN CORPUSCULAR HEMOGLOBIN 31.5 PG (28-34); MEAN CORPUSCULAR HGB CONC 34.9 g/dL (30-36); MEAN PLATELET VOLUME 9.9 FL (6.5-11.5); RED BLOOD COUNT 4.05 X10e (3.90-5.60); RED CELL DISTRIBUTION WIDTH 13.5 % (11.0-15.5); WHITE BLOOD COUNT 12.4 X10e3 (4.0-10.5)
[2017-05-11 07:17] LABS: ALBUMIN SERUM 3.5 g/dL (3.5-5.0); BILIRUBIN,TOTAL 1.4 mg/dL (0.2-2.0); BUN/CREATININE RATIO 6.97; CALCIUM SERUM 8.7 mg/dL (8.4-10.2); CREATININE SERUM 4.3 mg/dL (0.6-1.4); GLOM FILT RATE Estimated 17.1 mL/min (>60); PHOSPHOROUS 4.7 mg/dL (2.5-4.6); POTASSIUM 3.5 mmol/L (3.5-5.1)
[2017-05-11 08:16] LABS: COMPLEMENT C3 100 mg/dL (90-180); COMPLEMENT C4 20 mg/dL (16-47)
[2017-05-12 03:58] LABS: HEMATOCRIT 34.6 % (38.0-50.0); HEMOGLOBIN 12.1 gm/dL (13.0-16.0); MEAN CELL VOLUME 92.2 FL (83-96); MEAN CORPUSCULAR HEMOGLOBIN 32.2 PG (28-34); MEAN CORPUSCULAR HGB CONC 34.9 g/dL (30-36); MEAN PLATELET VOLUME 10.2 FL (6.5-11.5); RED BLOOD COUNT 3.75 X10e (3.90-5.60); RED CELL DISTRIBUTION WIDTH 13.7 % (11.0-15.5); WHITE BLOOD COUNT 10.8 X10e3 (4.0-10.5)
[2017-05-12 04:54] LABS: ALBUMIN SERUM 3.3 g/dL (3.5-5.0); BILIRUBIN,TOTAL 1.3 mg/dL (0.2-2.0); BUN/CREATININE RATIO 8.66; CALCIUM SERUM 8.5 mg/dL (8.4-10.2); GLOM FILT RATE Estimated 26.5 mL/min (>60); PHOSPHOROUS 3.8 mg/dL (2.5-4.6); POTASSIUM 3.2 mmol/L (3.5-5.1); PROTEIN TOTAL SERUM 5.6 g/dL (6.0-8.3)
[2017-05-13 06:00] LABS: BUN/CREATININE RATIO 9.09; CALCIUM SERUM 8.6 mg/dL (8.4-10.2); CREATININE SERUM 2.2 mg/dL (0.6-1.4); GLOM FILT RATE Estimated 38.5 mL/min (>60); POTASSIUM 3.3 mmol/L (3.5-5.1)
[2017-05-14 05:49] LABS: BUN/CREATININE RATIO 8.94; CALCIUM SERUM 8.4 mg/dL (8.4-10.2); CREATININE SERUM 1.9 mg/dL (0.6-1.4); MAGNESIUM 1.8 mg/dL (1.6-3.0); POTASSIUM 3.4 mmol/L (3.5-5.1)
[2017-05-14] MEDS ORDERED: HYDRALAZINE HCL50 MG PO (12:32)
[2017-05-14 14:41] LABS: ANA SCREEN Negative (Negative); HEP C AB (HEPPAN) Nonreactive (Nonreactive); HEP C AB SIGNAL TO CUTOFF 0.02 ratio (<1.00); MYELOPEROXIDASE AB (PNL) <1.0 AI (<1.0); PROTEINASE-3 AB (PNL) <1.0 AI (<1.0)
== END 2017-05-14 13:00 | disposition home or self-care (01) | DRG 917 ==
LOC: CED 16:54 → CEDOF 21:40 → CED 21:40 → CEDOF 21:54 → C3A PCU 05-08 11:26 → CEDOF 05-08 11:26 → C3A PCU 05-08 11:26
PROVIDERS: Emergency Medicine; Internal Medicine; Internal Medicine Nephrology; Nurse Practitioner; Orthopaedic Surgery
PROC: B24BYZZ Ultrasonography of Heart with Aorta using Other Contrast (ICD-10-PCS; principal; 2017-05-09)
DX: T40.2X2A Poisoning by other opioids, intentional self-harm, initial encounter (principal); J96.01 Acute respiratory failure with hypoxia; G93.40 Encephalopathy, unspecified; N17.9 Acute kidney failure, unspecified; E87.2 Acidosis; F11.20 Opioid dependence, uncomplicated; F33.2 Major depressive disorder, recurrent severe without psychotic features; M62.82 Rhabdomyolysis; R45.851 Suicidal ideations; G40.909 Epilepsy, unspecified, not intractable, without status epilepticus; D72.829 Elevated white blood cell count, unspecified; F17.210 Nicotine dependence, cigarettes, uncomplicated; R00.1 Bradycardia, unspecified; I08.1 Rheumatic disorders of both mitral and tricuspid valves; I27.2 Other secondary pulmonary hypertension
CPT/HCPCS: 36415; 36600; 70450; 70553; 71010; 71020; 72100; 74176; 76770; 80048; 80053; 80061; 80076; 80307; 81003; 82308; 82550; 82570; 82803; 83520; 83605; 83735; 83930; 84100; 84156; 84300; 84443; 84484; 85025; 85027; 85610; 85730; 86021; 86038; 86039; 86160; 86334; 86803; 87040; 87086; 87806; 89190; 93005; 93306; 94640; 94760; 95816; 96361; 96374; 99285; A9577; G0480; J0360; J1953; J2405; J2543; J7060